=== PATIENT | female | born 1985 | race African-American/Black ===

== ENCOUNTER 2016-12-10 14:24 | Emergency (ER) | payer OTHER ==
[2016-12-10 13:44] LABS: URINE SOURCE CLEAN CATCH
[2016-12-10 13:48] LABS: URINE APPEARANCE CLEAR; URINE BILIRUBIN NEG (NEG); URINE BLOOD 2+ (NEG); URINE COLOR YELLOW; URINE GLUCOSE NEG (NEG); URINE KETONE TRACE (NEG); URINE LEUKOCYTE ESTERASE 1+ (NEG); URINE NITRATE NEG (NEG); URINE PROTEIN NEG (NEG); URINE SPECIFIC GRAVITY 1.025 (1.003-1.035)
[2016-12-10 13:51] LABS: URINE BACTERIA AUWI NEG (NEGATIVE); URINE SQUAMOUS EPITHELIAL CELL OCC /[HPF]
[2016-12-10 14:03] LABS: CULTURE INDICATED? NO
== END 2016-12-10 16:15 | disposition home or self-care (01) ==
LOC: CED 14:24
DX: H92.01 Otalgia, right ear (principal); J30.2 Other seasonal allergic rhinitis
CPT/HCPCS: 81003; 84703; 99282

== ENCOUNTER 2016-12-21 15:06 | Emergency (ER) | payer OTHER ==
[2016-12-21 14:38] LABS: URINE SOURCE CLEAN CATCH
[2016-12-21 14:47] LABS: URINE APPEARANCE CLEAR; URINE BILIRUBIN NEG (NEG); URINE BLOOD 1+ (NEG); URINE COLOR YELLOW; URINE GLUCOSE NEG (NEG); URINE KETONE TRACE (NEG); URINE LEUKOCYTE ESTERASE 1+ (NEG); URINE NITRATE NEG (NEG); URINE PROTEIN NEG (NEG); URINE SPECIFIC GRAVITY 1.032 (1.003-1.035)
[2016-12-21 14:50] LABS: CULTURE INDICATED? YES; URINE BACTERIA AUWI 2+ (NEGATIVE); URINE SQUAMOUS EPITHELIAL CELL NONE SEEN /[HPF]; UWBCS1 AUWI 25-50 (0-5)
[2016-12-25 09:51] LABS: CHLAMYDIA TRACH Not Detected (Not Detected); N GONOR Detected (Not Detected)
== END 2016-12-21 16:00 | disposition home or self-care (01) ==
LOC: CFTX 15:06
PROVIDERS: Physician Assistant
DX: N30.00 Acute cystitis without hematuria (principal)
CPT/HCPCS: 81003; 84703; 87086; 87088; 87186; 87491; 87591; 87808; 87905; 99284

== ENCOUNTER 2017-04-30 15:04 | Emergency (ER) | payer OTHER ==
[~2017-04-30] VITALS: Ht 160 cm; Wt 68.5 kg
--- NOTE | ~2017-04-30 | CR126 ---
[facility] A Service of [facility] & [facility] RADIOLOGY TEXT RESULTS PATIENT: CAL PALOMARES LOCATION: [facility] : [birth year] UNIT #: [id number] AGE: [address]: Delbert Barnes MD SEX: F ORDER DR: [id number] [facility] [address] [place], [place] [address] [id number] E MR#: [id number] Acc #: [id number] NAME: CAL PALOMARES : 1985 SEX: F STUDY DATE/TIME: 04/30/2017 16:39 UNIT: [facility] ROOM: STUDY DESCRIPTION: CR Foot Complete Min 3 View Lt Attending Physician: Delbert Barnes M.D. Ordering Physician: Delbert Barnes M.D. Primary Care Physician: [facility] MEDICAL IMAGING REPORT This report is preliminary unless electronic signature is present EXAM Left foot, 3 views. COMPARISON Three views of the left ankle on the same date. INDICATION 31-year-old female with left foot pain after falling today. FINDINGS Bones are anatomically aligned. No evidence of acute fracture or degenerative change. No radiopaque foreign body or subcutaneous gas. IMPRESSION Normal exam. Dictated by... Dilip Kolb M.D. THIS IS AN ELECTRONICALLY VERIFIED REPORT Dilip Kolb M.D. at 05/06/2017 9:35 PM MARY JANE/johnny TD: 04/30/2017 21:36 JOB #: [id number] MEDICAL IMAGING REPORT Page 1 of 1 COPY
--- NOTE | ~2017-04-30 | CT71 ---
[facility] A Service of [facility] RADIOLOGY TEXT RESULTS PATIENT: CAL PALOMARES LOCATION: [facility] : 87 UNIT #: [id number] AGE: [address]: Delbert Barnes MD SEX: F ORDER DR: [id number] [place] [id number] [facility]. [place], [place] [address] [id number] E MR#: [id number] Acc #: [id number] NAME: CAL PALOMARES : 1985 SEX: F STUDY DATE/TIME: 04/30/2017 16:59 UNIT: [facility] ROOM: STUDY DESCRIPTION: CT Head Wo Contrast Attending Physician: Delbert Barnes M.D. Ordering Physician: Delbert Barnes M.D. Primary Care Physician: [facility] MEDICAL IMAGING REPORT This report is preliminary unless electronic signature is present EXAM Head CT, no contrast, 04/30/2017. INDICATION 31-year-old female with a history of fall today. Hit the head on the ground, lost consciousness, headache, hit the back of the head. Bipolar disorder. TECHNIQUE Noncontrast CT brain was performed. This CT exam was performed with one or more of the following radiation dose reduction techniques: automatic exposure control, adjustment of mA and/or kV according to patient size, and iterative reconstruction. COMPARISON We have no comparison studies. FINDINGS CT BRAIN: Sulci and ventricles are unremarkable. No midline shift. No evidence of acute intracranial hemorrhage. There is no mass, mass effect, or edema to suggest acute infarct and no extraaxial fluid collections are present. Globes are intact. Bones intact. Sinuses clear. IMPRESSION Negative noncontrast CT of the brain. No clearly acute intracranial process. Dictated by... Kiran Dorsey M.D. [facility] A Service [facility] RADIOLOGY TEXT RESULTS PATIENT: CAL PALOMARES LOCATION: [facility] : 87 UNIT #: [id number] AGE: [address]: Delbert Barnes MD SEX: F ORDER DR: THIS IS AN ELECTRONICALLY VERIFIED REPORT Kiran Dorsey M.D. at 04/30/2017 10:45 PM KENN/johnny TD: 04/30/2017 21:33 JOB #: [id number] MEDICAL IMAGING REPORT Page 1 of 1 COPY
--- NOTE | ~2017-04-30 | CR20 ---
[facility] A Service of [facility] & [facility] RADIOLOGY TEXT RESULTS PATIENT: CAL PALOMARES LOCATION: [facility] : 87 UNIT #: [id number] AGE: [address]: Delbert Barnes MD SEX: F ORDER DR: [id number] [facility] [address] [place], [place] [address] [id number] E MR#: [id number] Acc #: [id number] NAME: CAL PALOMARES : 1985 SEX: F STUDY DATE/TIME: 04/30/2017 16:37 UNIT: [facility] ROOM: STUDY DESCRIPTION: CR Ankle Min 3 Views Lt Attending Physician: Delbert Barnes M.D. Ordering Physician: Delbert Barnes M.D. Primary Care Physician: [facility] MEDICAL IMAGING REPORT This report is preliminary unless electronic signature is present EXAM Left ankle, 3 views. COMPARISON Three views of the left foot on the same date. INDICATION 31-year-old female with left ankle pain after falling today. FINDINGS Bones are anatomically aligned. No acute fracture or degenerative change. No radiopaque foreign body or subcutaneous gas. IMPRESSION Normal exam. Dictated by... Dilip Kolb M.D. THIS IS AN ELECTRONICALLY VERIFIED REPORT Dilip Kolb M.D. at 05/06/2017 9:35 PM MARY JANE/johnny TD: 04/30/2017 21:35 JOB #: [id number] MEDICAL IMAGING REPORT Page 1 of 1 COPY
== END 2017-04-30 18:45 | disposition home or self-care (01) ==
LOC: CED 15:04 → CFTX 15:04 → CED 16:04
DX: S06.0X9A Concussion with loss of consciousness of unspecified duration, initial encounter (principal); S90.02XA Contusion of left ankle, initial encounter; F17.200 Nicotine dependence, unspecified, uncomplicated; W01.10XA Fall on same level from slipping, tripping and stumbling with subsequent striking against unspecified object, initial encounter; Y92.009 Unspecified place in unspecified non-institutional (private) residence as the place of occurrence of the external cause
CPT/HCPCS: 29540; 70450; 73610; 73630; 99284